=== PATIENT | female | born 1960 | race Caucasian/White ===

== ENCOUNTER → 2019-12-31 | Outpatient (CLI) | payer OTHER ==
[~2019-12-31] MED LIST: ALLO100T30 PO; ASPI-515 PO; AZEL205. TD; CARV12.52 PO; ESTR0.6246 PO; FLUT1DIS3 INH; FURO20TA3 PO; LEVA15HF4 PO; METF500T17 PO; MOME17SP NS; MONT10TA6 PO; OMEP-110 PO; PRAV10TA2 PO; VALS1TAB19 PO
== END | disposition home or self-care (01) ==
LOC: CFH 07:16
PROVIDERS: ATTEND Obstetrics & Gynecology
DX: Z12.31 Encounter for screening mammogram for malignant neoplasm of breast (principal)
CPT/HCPCS: 77063; 77067